=== PATIENT | male | born 1995 | race Hispanic/Latino ===

== ENCOUNTER 2022-07-08 21:18 | Emergency (ER) | payer SELFPAY ==
[~2022-07-08] VITALS: Ht 185.4 cm; Wt 90.7 kg
[2022-07-08] MEDS ORDERED: KETOROLAC TROMETHAMINE 30 MG/ML VIAL IV STA (21:42)
[2022-07-08] MEDS ORDERED: ONDANSETRON HCL INJ 2MG/ML 2ML 2 MG/ML VIAL IV STA (21:44)
[2022-07-08 21:57] LABS: BASOPHILS % 0.3 % (0.0-1.0); EOSINOPHILS # (AUTO) 0.4 (0.0-0.4); EOSINOPHILS % 3.8 % (0.0-6.0); HEMATOCRIT 47.4 % (38.2-49.6); HEMOGLOBIN 16.4 g/dL (14.0-18.0); LYMPHOCYTES # (AUTO) 4.6 (1.0-3.2); LYMPHOCYTES % 39.7 % (18.0-39.1); MEAN CORPUSCULAR HEMOGLOBIN 29.4 pg (28-32); MEAN CORPUSCULAR HGB CONC 34.6 g/dL (31-35); MEAN CORPUSCULAR VOLUME 84.9 fL (81-99); MONOCYTES # (AUTO) 1.1 (0.2-0.8); MONOCYTES % 9.1 % (4.4-11.3); NEUTROPHILS # (AUTO) 5.4 (2.1-6.9); NEUTROPHILS % 46.5 % (38.7-80.0); PLATELET COUNT 347 x10e3/uL (140-360); RED BLOOD COUNT 5.58 x10e6/uL (4.3-5.7)
[2022-07-08 21:58] LABS: CLARITY,URINE CLEAR (CLEAR); COLOR,URINE YELLOW (YELLOW); LEUKOCYTE ESTERASE ,URINE NEGATIVE (NEGATIVE)
[2022-07-08 21:59] LABS: AMPHETAMINES SCREEN,URINE NEGATIVE (NEGATIVE); BENZODIAZEPINES SCREEN,URINE NEGATIVE (NEGATIVE); KETONES,URINE NEGATIVE (NEGATIVE); NITRITE,URINE NEGATIVE (NEGATIVE); PHENCYCLIDINE SCREEN,URINE NEGATIVE (NEGATIVE); PROTEIN,URINE DIPSTICK NEGATIVE (NEGATIVE); URINE UROBILINOGEN 1 mg/dL (0.2 - 1)
[2022-07-08 22:02] LABS: BACTERIA,URINE RARE /HPF; EPITHELIAL CELLS,URINE RARE /LPF; WBC,URINE (MAN) 0-5 /HPF (0-5)
[2022-07-08 22:13] LABS: ALBUMIN 4.1 g/dL (3.5-5.0); ALBUMIN/GLOBULIN RATIO 1.2 (0.8-2.0); ANION GAP 15.3 mmol/L (8-16); CALCIUM 8.9 mg/dL (8.4-10.2); CREATININE, SERUM 1.11 mg/dL (0.72-1.25); POTASSIUM 3.3 mmol/L (3.5-5.1)
[2022-07-08] MEDS ORDERED: Morphine 4mg INJECTION 4 MG/ML INJ IV STA (22:34)
[2022-07-08] MEDS ORDERED: PROMETHAZINE 25MG/ NS 50ML (IV) IV STA (23:38)
[2022-07-08] MEDS ORDERED: PROMETHAZINE 12.5MG/ NACL 0.9% 50 ML ONE (23:57)
[2022-07-09] MEDS ORDERED: IOPAMIDOL 370 MG/ML 100 ML INFUS..BTL INJ ONE (00:16)
[2022-07-09 02:44] VITALS: BP 128/94
[2022-07-09] MEDS ORDERED: ONDANSETRON ODT4 MG PO (02:45)
[2022-07-09] MEDS ORDERED: ACETAMINOPHEN-1 EAC4 PO (02:45)
== END 2022-07-09 02:58 | disposition home or self-care (01) ==
LOC: ER 21:42
DX: R10.11 Right upper quadrant pain (principal); R11.0 Nausea
CPT/HCPCS: 36415; 74177; 80053; 80307; 81001; 83690; 85025; 99284; J1885; J2270; J2405; J2550; Q9967